=== PATIENT | female | born 1995 | race African-American/Black ===

== ENCOUNTER 2018-06-05 17:41 | Emergency (ER) | payer MEDICAID ==
[~2018-06-05] VITALS: Ht 170.2 cm; Wt 69.0 kg
[2018-06-05 20:09] LABS: BASOPHILS % 0.5 % (0.0-2.0); EOSINOPHILS % 1.1 % (0.0-5.0); HEMATOCRIT. 37.2 % (36.0-48.0); HEMOGLOBIN. 12.3 g/dL (12.0-16.0); MEAN CORPUSCULAR HEMOGLOBIN 30.1 pg (28.0-32.0); MEAN CORPUSCULAR VOLUME 90.9 fL (81.0-99.0); MEAN PLATELET VOLUME 7.8 fl (7.4-10.4); MONOCYTES % 5.8 % (2.0-8.0); NEUTROPHILS % 53.6 % (40.0-76.0); PLATELET 275 x1000/uL (130-400); RED CELL DISTRIBUTION WIDTH 13.2 % (11.6-14.6)
[2018-06-05 20:12] LABS: HCG SCREEN NEGATIVE
[2018-06-05 20:15] LABS: CHLORIDE 105 mEq/L (98-107); PROTHROMBIN TIME 10.5 sec (9.1-11.1)
[2018-06-05 21:48] VITALS: BP 113/68
== END 2018-06-05 21:49 | disposition home or self-care (01) ==
LOC: ER 17:41
DX: K62.5 Hemorrhage of anus and rectum (principal)
CPT/HCPCS: 36415; 83605; 84703; 86850; 86900; 99283